=== PATIENT | female | born 1960 | race Caucasian/White ===

== ENCOUNTER 2020-05-28 13:02 | Emergency (ER) | payer OTHER ==
[2020-05-28] MEDS ORDERED: METOPROLOL TARTRATE PF/INJ 5 MG/5 ML SDV IV ONE (13:51)
[2020-05-28 14:01] LABS: ABSOLUTE BASOPHILS # (AUTO) 0.1 10^3/uL (0.0-0.2); ABSOLUTE EOSINOPHILS # (AUTO) 0.5 10^3/uL (0.0-0.6); ABSOLUTE LYMPHOCYTES (AUTO) 3.1 10^3/uL (0.5-4.7); ABSOLUTE NEUT (AUTO) 2.6 10^3/uL (1.7-8.2); BASOPHILS % (AUTO) 1.2 % (0-2); EOSINOPHILS % (AUTO) 6.4 % (0-6); HEMATOCRIT 41.8 % (36.0-47.0); HEMOGLOBIN 13.9 g/dL (12.0-15.5); LYMPHOCYTES % (AUTO) 42.9 % (13-45); MEAN CORPUSCULAR HEMOGLOBIN 29.1 pg (27.0-33.4); MEAN CORPUSCULAR HGB CONC 33.2 g/dL (32.0-36.0); MEAN CORPUSCULAR VOLUME 88 fl (80-97); MONOCYTES % (AUTO) 13.2 % (3-13); PLATELET COUNT 339 10^3/uL (150-450); RED BLOOD COUNT 4.77 10^6/uL (3.72-5.28); RED CELL DISTRIBUTION WIDTH 15.7 % (11.5-14.0); SEGMENTED NEUTROPHILS % (AUTO) 36.3 % (42-78); TOTAL CELLS COUNTED % (AUTO) 100 %; WHITE BLOOD COUNT 7.2 10^3/uL (4.0-10.5)
[2020-05-28 14:11] LABS: ALKALINE PHOSPHATASE 80 U/L (38-126); ANION GAP 12 (5-19); ASPARTATE AMINO TRANSFERASE 24 U/L (14-36); BILIRUBIN,TOTAL 0.7 mg/dL (0.2-1.3); BLOOD UREA NITROGEN 18 mg/dL (7-20); CALCIUM 10.1 mg/dL (8.4-10.2); CARBON DIOXIDE 27 mmol/L (22-30); CHLORIDE 101 mmol/L (98-107); GLUCOSE 129 mg/dL (75-110); POTASSIUM 3.6 mmol/L (3.6-5.0); TOTAL PROTEIN 8.4 g/dL (6.3-8.2)
--- NOTE | 2020-05-28 14:41 | RADIOLOGY REPORT (SQ) ---
EXAM DESCRIPTION: CHEST SINGLE VIEW IMAGES COMPLETED DATE/TIME: 05/28/2020 2:18 pm REASON FOR STUDY: sob COMPARISON: None. EXAM PARAMETERS: NUMBER OF VIEWS: One view. TECHNIQUE: Single frontal radiographic view of the chest acquired. RADIATION DOSE: NA LIMITATIONS: None. FINDINGS: LUNGS AND PLEURA: No opacities, masses or pneumothorax. No pleural effusion. MEDIASTINUM AND HILAR STRUCTURES: No masses. Contour normal. HEART AND VASCULAR STRUCTURES: Heart normal in size. Normal vasculature. BONES: No acute findings. HARDWARE: None in the chest. OTHER: No other significant finding. IMPRESSION: NO ACUTE RADIOGRAPHIC FINDING IN THE CHEST. TECHNICAL DOCUMENTATION: JOB ID: [id number] 2010 [email or web address]- All Rights Reserved Reading location - IP/workstation name: [email or web address]
[2020-05-28] MEDS ORDERED: ASPIRIN 81 MG TABLET, CHEWABLE PO ONE (15:25)
[2020-05-28] MEDS ORDERED: NITROGLYCERIN 0.4 MG/TAB 25 TAB/BOTTLE SL ONE (15:26)
[2020-05-28] MEDS ORDERED: METOPROLOL SUCCINATE 25 MG TAB.SR.24H PO ONE (15:26)
--- NOTE | 2020-05-28 15:27 | ER Document Report ---
ED Cardiac - General Mode of Arrival: Ambulatory Information source: Patient TRAVEL OUTSIDE OF THE [place] IN LAST 30 DAYS: No - HPI Patient complains to provider of: Chest pain, Shortness of breath Use of: denies: Alcohol, Amphetamines, Bath salts, Caffeine, Cocaine, Decongestants Was the onset of pain: Sudden When did pain begin: 1 hour prior to arrival Is the pain a: New problem Chest pain location: Substernal, Back Quality of pain: Severe, Heaviness, Pressure, Sharp, Tightness Chest pain radiation location: Right arm, Back Severity now: Moderate Severity at worst: Severe Pain level currently: 5 Chest pain precipitating factors: Physical Exertion Cardiac risk factors: Hypertension, + Family history. denies: Smoker, Dyslip idemia, Hx CHF, Hx NE Associated symptoms: Back pain, Lightheaded, Palpitations, Shortness of breath, Weakness Exacerbated by: Denies Relieved by: Nothing Similar symptoms previously: No Recently seen / treated by doctor: No <FRANCISCO WHITE - Last Filed: 05/28/20 19:04> <OUMOU MOON - Last Filed: 05/28/20 20:30> - General Chief Complaint: Chest Pain Stated Complaint: CHEST PAIN,SHORTNESS OF BREATH Time Seen by Provider: 05/28/20 13:31 Primary Care Provider: ANGELINA HOPKINS PA-C [Primary Care Provider] - Follow up as needed Notes: Patient is a 59-year-old female comes emergency room with complaint of having right-sided arm pain mid epigastric pain that started all of a sudden approximately 40 minutes prior to arrival. Patient states she was at [employer] and headed back to work. She got half way to work when she felt this painful sharp pain down her right arm. She states it was not like needles and pins it was like severe muscle spasm. She states that she felt like her heart was going to jump out of her chest it was beating so fast. States that the pain radiated not only down the right arm but mid epigastric straight to her "shoulder blades. Patient has only a history of hypertension and hypothyroidism. She only takes 2 medications one for her blood pressure which is amlodipine and benazepril and levothyroxine. She states however she has been out of those medications for 10 days because she is been unable to get her primary or see them since the COVID pandemic occurred. Patient denies smoking she denies any other medical problems. 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 (FRANCISCO WHITE) - Related Data Allergies/Adverse Reactions: No Known Allergies Allergy (Verified 05/28/20 13:33) Past Medical History - General Information source: Patient - Social History Smoking Status: Former Smoker Chew tobacco use (# tins/day): No Smoking Education Provided: No Frequency of alcohol use: None Drug Abuse: None Lives with: Alone Family History: CAD, Hyperlipidemia, Hypertension <FRANCISCO WHITE - Last Filed: 05/28/20 19:04> Review of Systems - Review of Systems Constitutional: No symptoms reported EENT: No symptoms reported Cardiovascular: See HPI, Chest pain, Palpitations, Heart racing, Lightheaded Respiratory: See HPI, Short of breath Gastrointestinal: No symptoms reported Genitourinary: No symptoms reported Female Genitourinary: No symptoms reported Musculoskeletal: See HPI, Back pain Skin: No symptoms reported Hematologic/Lymphatic: No symptoms reported Neurological/Psychological: No symptoms reported <FRANCISCO WHITE - Last Filed: 05/28/20 19:04> Physical Exam - Vital signs Interpretation: Hypertensive, Tachycardic <FRANCISCO WHITE - Last Filed: 05/28/20 19:04> - Vital signs Vitals: Temp 98.4 F 05/28/20 13:28 - Notes Notes: PHYSICAL EXAMINATION: GENERAL: Patient is a well-nourished well-developed overweight 59-year-old female no no apparent distress appears slightly anxious and little worried. She is slightly diaphoretic. HEAD: Atraumatic, normocephalic. EYES: Pupils equal round and reactive to light, extraocular movements intact, conjunctiva are normal. ENT: Nares patent, oropharynx clear without exudates. Moist mucous membranes. NECK: Normal range of motion, supple without lymphadenopathy LUNGS: Auscultation patient's lungs show bilateral breath sounds with breath sounds increased throughout no rhonchi rales or wheeze are heard on auscultation. HEART: Patient has a varying rate on her heart rate from anywhere from 60 beats to 170 beats. The high end of the beats on monitor look like this SVT. Jake looks like an A. fib. No murmurs heard ABDOMEN: Soft, nontender, nondistended abdomen. No guarding, no rebound. No masses appreciated. Female : deferred Musculoskeletal: Normal range of motion, no pitting or edema. No cyanosis. Neurological : Normal speech, normal gait. Normal sensory, motor exams PSYCH: Normal mood, normal affect. SKIN: Warm, Dry, normal turgor, no rashes or lesions noted. (FRANCISCO WHITE) Course - Laboratory Result Diagrams: 05/28/20 13:25 05/28/20 13:25 <FRANCISCO WHITE - Last Filed: 05/28/20 19:04> - Laboratory Result Diagrams: 05/28/20 13:25 05/28/20 13:25 <OUMOU MOON - Last Filed: 05/28/20 20:30> - Re-evaluation Re-evalutation: 05/28/20 19:14 Patient stay here has been followed by her pattern grader supervisor Dr. Reyna from the onset. He was actually informed of patient's EKG findings as well as troponin and it as well as a run of V. tach. He felt that it was necessary to go ahead and have patient transferred to a cardiac facility. Patient's whole course shoulder coming in on her own private vehicle. She described the pain as sharp heavy in her right arm and felt like her heart was going to jump out of her chest at the onset. Throughout her stay here she has been given Lopressor 2.5 IV which seemed to calm her down slightly but her heart rates down into the low 100s. I kept it there for a while. Conversation with Dr. Reyna we gave her 25 mg of metoprolol which actually put her into a normal sinus rhythm for quite a while and then started to drop her into the upper 50s. About the same time patient went in and through a 6 beat run of V. tach and then cleaned it up on her own. After patient received nitro she had 100% resolution of her arm pain on the right and her midsternal chest pain. We again reconsult with Dr. Reyna the pattern grader supervisor and he felt as stated earlier that patient should be transferred to a cardiac facility. We have placed calls to by Jerald and to Jayce Arango and awaiting for replies back from our cardiacs groups or hospitalist. 05/28/20 19:18 By did not did not respond back to who is a cardiac resident at [facility] who is requested we repeat patient's troponin again at 8:00 and if it is going up any at all to go ahead and start her on heparin protocol drip. (FRANCISCO WHITE) 05/28/20 20:17 Report received on the patient, I did evaluate the patient, awaiting third troponin, awaiting callback from [facility] 05/28/20 20:24 Troponin is elevated to 4.8. We will start heparin drip. I will call [facility], repeat EKG 05/28/20 20:26 spoke with Transfer center at [facility], patient has been accepted and has a bed. notified them of heparin drip order and elevated troponin. (OUMOU MOON) - Vital Signs Vital signs: Temp Pulse Resp BP Pulse Ox 98.5 F 16 180/101 H 98 05/28/20 18:11 05/28/20 20:01 05/28/20 20:01 05/28/20 20:01 - Laboratory Laboratory results interpreted by me: 05/28/20 05/28/20 05/28/20 13:25 13:25 15:12 RDW 15.7 H [place] % (Auto) 13.2 H Eos % (Auto) 6.4 H Seg Neutrophils % 36.3 L Glucose 129 H Total Protein 8.4 H Urine Ketones TRACE H Critical Care Note - Critical Care Note Total time excluding time spent on procedures (mins): 45 - Nstemi <OUMOU MOON - Last Filed: 05/28/20 20:30> Discharge <FRANCISCO WHITE - Last Filed: 05/28/20 19:04> <OUMOU MOON - Last Filed: 05/28/20 20:30> - Discharge Clinical Impression: Hypertensive emergency, Elevated troponin I measurement Chest pain Qualifiers: Chest pain type: unspecified Qualified Code(s): R07.9 - Chest pain, unspecified Arrhythmia Qualifiers: Arrhythmia type: other cardiac arrhythmia Qualified Code(s): I49.8 - Other specified cardiac arrhythmias Condition: Fair Disposition: [facility] Referrals: ANGELINA HOPKINS PA-C [Primary Care Provider] - Follow up as needed
[2020-05-28 15:37] LABS: APPEARANCE,URINE CLEAR; BILIRUBIN,URINE NEGATIVE (NEGATIVE); COLOR,URINE YELLOW; GLUCOSE, URINE NEGATIVE (NEGATIVE); KETONES,URINE TRACE mg/dL (NEGATIVE); LEUKOCYTE ESTERASE,URINE NEGATIVE (NEGATIVE); NITRITE,URINE NEGATIVE (NEGATIVE); PROTEIN,URINE NEGATIVE (NEGATIVE); URINE SPECIFIC GRAVITY 1.044; UROBILINOGEN,URINE NEGATIVE mg/dL (<2.0)
--- NOTE | 2020-05-28 15:51 | RADIOLOGY REPORT (SQ) ---
EXAM DESCRIPTION: CTA ABDOMEN/PELVIS W IMAGES COMPLETED DATE/TIME: 05/28/2020 3:06 pm REASON FOR STUDY: AAA dissection COMPARISON: None. TECHNIQUE: CT scan of the abdominal aorta extending to the iliac bifurcation performed with intraven ous contrast using helical scanning technique with dynamic intravenous contrast injection. Images rev iewed with lung, soft tissue, and bone windows. Reconstructed coronal and sagittal MPR images reviewe d. All images stored on PACS. Advanced 3D imaging as volume rendering, MIPS, SSD performed? yes All CT scanners at this facility use dose modulation, iterative reconstruction, and/or weight based d osing when appropriate to reduce radiation dose to as low as reasonably achievable (ALARA). [facility]: Dose Right [facility]: CareDose [facility]: Dose Right [facility]: Teradose 4D [facility]: BT Imaging CONTRAST TYPE AND DOSE: 100 mL Omnipaque 350- low osmolar. RENAL FUNCTION: BUN 18 creatinine 0.72 LIMITATIONS: None. FINDINGS: AORTA AND VESSELS: No aneurysm. No dissection. Renal arteries, SMA, celiac without stenosi s. LUNG BASES: See separate report for CTA of the chest. LIVER: Normal size. No masses or dilated ducts. SPLEEN: Normal size. No focal lesions. PANCREAS: No masses. No significant calcifications. No adjacent inflammation or peripancreatic fluid collections. Pancreatic duct not dilated. GALLBLADDER: No identified stones by CT criteria. No inflammatory changes to suggest cholecystitis. ADRENAL GLANDS: No significant masses or asymmetry. RIGHT KIDNEY AND URETER: No mass, calculi or urinary tract obstruction. LEFT KIDNEY AND URETER: No mass, calculi or urinary tract obstruction. RETROPERITONEUM: No retroperitoneal adenopathy, hemorrhage or masses. BOWEL AND PERITONEAL CAVITY: No masses or inflammatory changes. There is retained stool. No free fl uid or peritoneal masses. APPENDIX: Normal. PELVIS: The urinary bladder is normal. No abnormal pelvic mass or fluid collection. ABDOMINAL WALL: No masses. No hernias. BONY STRUCTURES: No significant or acute findings. 3-D IMAGING: Confirms the above findings. OTHER: No other significant finding. IMPRESSION: No abdominal aortic aneurysm or dissection. No stenosis. Possible constipation. No ot her significant finding in the abdomen or pelvis. TECHNICAL DOCUMENTATION: JOB ID: [id number] Quality ID # [id number]: Final reports with documentation of one or more dose reduction techniques (e.g., Au tomated exposure control, adjustment of the mA and/or kV according to patient size, use of iterative reconstruction technique) 2010 [employer]- All Rights Reserved Reading location - IP/workstation name: [email or web address]
--- NOTE | 2020-05-28 16:00 | RADIOLOGY REPORT (SQ) ---
EXAM DESCRIPTION: CTA CHEST IMAGES COMPLETED DATE/TIME: 05/28/2020 3:06 pm REASON FOR STUDY: PE/ Dissection COMPARISON: None. TECHNIQUE: CT scan of the chest performed using helical scanning technique with dynamic intravenous contrast injection. Images reviewed with lung, soft tissue and bone windows. Reconstructed coronal and sagittal MPR images reviewed. Additional 3 dimensional post-processing performed to develop Maximal Intensity Projection images (MO P). All images stored on PACS. All CT scanners at this facility use dose modulation, iterative reconstruction, and/or weight based d osing when appropriate to reduce radiation dose to as low as reasonably achievable (ALARA). [facility]: Dose Right [facility]: CareDose [facility]: Dose Right [facility]: Teradose 4D [facility]: Sling Media CONTRAST TYPE AND DOSE: contrast/concentration: Isovue 350.00 mmol/ml; Total Contrast Delivered: 100 .0 ml; Total Saline Delivered: 72.0 ml Contrast bolus adequate for pulmonary arteries and aorta. RENAL FUNCTION: BUN 18 creatinine 0.72cc RADIATION DOSE: . LIMITATIONS: None. FINDINGS: LUNGS AND PLEURA: There are 2 small perifissural nodules on the right measuring about 5 mm . No acute infiltrate or effusion. AORTA AND GREAT VESSELS: No aneurysm. No dissection. HEART: No pericardial effusion. No significant coronary artery calcifications. PULMONARY ARTERIES: No emboli visualized in the main pulmonary arteries or the segmental branches. HILAR AND MEDIASTINAL STRUCTURES: No identified masses or abnormal nodes. HARDWARE: None in the chest. UPPER ABDOMEN: See separate report of the CT of the abdomen. THYROID AND OTHER SOFT TISSUES: No masses. No adenopathy. BONES: No acute or significant finding. 3D MIPS: Confirm above findings. OTHER: No other significant finding. IMPRESSION: 1. There is no pulmonary embolus. There is no aortic aneurysm or dissection. 2. There are 2 small perifissural nodules on the right as described. COMMENT: F[place] CRITERIA FOR FOLLOW-UP OF PULMONARY NODULES Incidentally detected new nodules in persons 35 or older. HIGH RISK: History of smoking or other known risk factors. <6 mm multiple solid nodules: LOW RISK: no routine followup. HIGH RISK: optional CT 12 mo. Quality ID # [id number]: Final reports with documentation of one or more dose reduction techniques (e.g., Au tomated exposure control, adjustment of the mA and/or kV according to patient size, use of iterative reconstruction technique) TECHNICAL DOCUMENTATION: JOB ID: [id number] 2010 [employer]- All Rights Reserved Reading location - IP/workstation name: [email or web address]
[2020-05-28] MEDS ORDERED: HEPARIN SODIUM,PORCINE/D5W 25,000 UNIT/250 ML RTUINJ IV PRN (20:24)
[2020-05-28] MEDS ORDERED: HEPARIN SOD (PORCINE) 1,000 UNIT/ML 10 ML VIAL IV ONE (20:24)
[2020-05-28] MEDS ORDERED: NITROGLYCERIN 2% OINTMENT 1 GM PACKET TP ONE (20:38)
[2020-05-28] MEDS ORDERED: CALCIUM CARBONATE 500 MG TAB.CHEW PO ONE (20:39)
[2020-05-28 20:50] LABS: PARTIAL THROMBOPLASTIN TIME 30.5 SEC (23.5-35.8); PROTHROMBIN TIME 13.4 SEC (11.4-15.4)
[2020-05-28 22:40] VITALS: BP 157/91
--- NOTE | 2020-05-29 09:38 | EKG REPORT ---
SEVERITY:- ABNORMAL ECG - SINUS RHYTHM ATRIAL PREMATURE COMPLEX ABNORMAL T, CONSIDER ISCHEMIA, ANT-LAT LEADS : Confirmed by: Sudhakar Armstrong 29-May-2020 09:37:30
--- NOTE | 2020-05-29 09:38 | EKG REPORT ---
SEVERITY:- ABNORMAL ECG - SINUS RHYTHM VENTRICULAR BIGEMINY : Confirmed by: Sudhakar Armstrong 29-May-2020 09:37:47
--- NOTE | 2020-05-29 09:38 | EKG REPORT ---
SEVERITY:- ABNORMAL ECG - SINUS RHYTHM ATRIAL PREMATURE COMPLEX BORDERLINE R WAVE PROGRESSION, ANTERIOR LEADS ABNORMAL T, CONSIDER ISCHEMIA, DIFFUSE LEADS : Confirmed by: Sudhakar Armstrong 29-May-2020 09:37:38
== END 2020-05-28 22:40 | disposition short-term general hospital (02) ==
LOC: ER 13:02
DX: I16.1 Hypertensive emergency (principal); I10 Essential (primary) hypertension; I47.2 Ventricular tachycardia; R79.89 Other specified abnormal findings of blood chemistry; R91.8 Other nonspecific abnormal finding of lung field; R07.2 Precordial pain; R06.02 Shortness of breath; M54.9 Dorsalgia, unspecified; R42 Dizziness and giddiness; R00.2 Palpitations; R53.1 Weakness; M79.601 Pain in right arm; R10.13 Epigastric pain; E03.9 Hypothyroidism, unspecified; Z87.891 Personal history of nicotine dependence; R61 Generalized hyperhidrosis
CPT/HCPCS: 93005; 99285; 96375; 96365; 36415; 84443; 85025; 85610; 85730; 80053; 81001; 84484; 71045; 71275; 74174; 93010; J1644 ×2; J3490